=== PATIENT | female | born 1940 | race Caucasian/White ===

== ENCOUNTER 2020-11-03 11:27 | Outpatient (REF) | payer MEDICARE, SELFPAY | END 2020-11-03 11:28 | disposition home or self-care (01) | LOC: HO.LAB 11:27 | PROVIDERS: Visit Provider Internal Medicine | DX: Z20.828 Contact with and (suspected) exposure to other viral communicable diseases (principal) | CPT/HCPCS: C9803; U0003 ==

== ENCOUNTER 2021-01-05 12:36 | Outpatient (REF) | payer MEDICARE, MEDICAID, SELFPAY ==
--- NOTE | ~2021-01-05 | MM_ITS ---
EXAMINATION: MM SCREENING DIGITAL BREAST TOMOSYNTHESIS, BILATERAL CLINICAL INFORMATION: Screening. Asymptomatic. The lifetime risk of breast cancer based on the Tyrer-Cuzick Model is 5%. COMPARISON: Mammography: 12/31/2019, 10/16/2018, 09/21/2017 TECHNIQUE: Digital breast tomosynthesis is performed in both the craniocaudal and mediolateral oblique views along with computer-aided detection (CAD). Synthesized 2D images are generated from the tomosynthesis. FINDINGS: There are scattered areas of fibroglandular density (ACR BI-RADS breast composition Category b). There are no significant masses, abnormal calcifications, or other abnormalities. The axilla and skin contours are unremarkable. No significant changes. MM/MM tomosynthesis screening BI IMPRESSION: No mammographic evidence of malignancy. ASSESSMENT: BI-RADS 1: Negative RECOMMENDATION: Routine annual mammography screening. This patient's information was entered into a reminder system with a target due date for their next mammogram.
== END 2021-01-05 12:37 | disposition home or self-care (01) ==
LOC: HO.MAMMO 12:36
PROVIDERS: PCP Internal Medicine Geriatric Medicine; Visit Provider Internal Medicine Geriatric Medicine
DX: Z12.31 Encounter for screening mammogram for malignant neoplasm of breast (principal)
CPT/HCPCS: 77063; 77067

== ENCOUNTER 2021-09-15 09:15 | Outpatient (REF) | payer MEDICARE, MEDICAID, SELFPAY ==
--- NOTE | ~2021-09-15 | MM_ITS ---
EXAMINATION: BONE DENSITOMETRY CLINICAL INDICATION: Other disorder of bone density and structure. COMPARISON: Previous BD dated 08/08/2012 and baseline BD dated 05/26/2007. TECHNIQUE: Using a [employer] DXA System (software version: 13.1) manufactured by [employer]), dual-energy x-ray absorptiometry was performed of the lumbar spine and left hip. The images are of good technical quality. Summary results are attached. FINDINGS: AP SPINE L1-L4: Current: BMD 1.091 g/cm2, Z-score 0.9, T-score -0.7, normal, 5.6% increase from previous, 14.5% increase from baseline (<5% change is not significant). Prior: BMD 1.033 g/cm2. Baseline: BMD 0.953 g/cm2. LEFT FEMUR, NECK: Current: BMD 0.872 g/cm2, Z-score 0.8, T-score -1.2, osteopenia. Prior: BMD 0.836 g/cm2. Baseline: BMD 0.853 g/cm2. LEFT FEMUR, TOTAL: Current: BMD 1.023 g/cm2, Z-score 1.9, T-score 0.1, normal, 1.6% decrease from previous, 3.9% decrease from baseline (<5% change is not significant). Prior: BMD 1.040 g/cm2. Baseline: BMD 1.065 g/cm2. IDENTIFIED RISK FACTORS: Early menopause, secondary osteoporosis, tobacco use (current smoker). HISTORY OF FRACTURE: None listed. MEDICATIONS: Calcium supplements or multivitamin, vitamin D. MM/XR DEXA axial skeleton IMPRESSION: 1. DIAGNOSIS: Osteopenia based on the lowest T-score value of -1.2 in the femoral neck applying World Health Organization criteria. 2. 10-YEAR FRACTURE RISK PREDICTION, FRAX: Major osteoporotic fracture (clinical spine, forearm, hip or shoulder) 7.0%. Hip fracture 2.1%. 3. Treatment Recommendations: NOF guidelines recommend consideration for treatment in postmenopausal women and men age 50 and older presenting with the following: -A hip or vertebral (clinical or morphometric) fracture. -T-score less than or equal to -2.5 at the femoral neck or spine after appropriate evaluation to exclude secondary causes. -Low bone mass at the hip or spine and a 10-year fracture probability by FRAX of greater than or equal to 3% for hip fracture or greater than or equal to 20% for major osteoporotic fracture based on the [place] adapted WHO algorithm. 4. Other Recommendations: All treatment decisions require clinical judgment and consideration of individual patient factors, including patient preferences, comorbidities, previous drug use, risk factors not captured in the FRAX model (e.g. frailty, falls, vitamin D deficiency, increased bone turnover, interval significant decline in bone density) and possible under or overestimation of fracture risk by FRAX. Additional medical evaluation for secondary cause of low bone mineral density may be appropriate. FUTURE SCAN RECOMMENDATION: People with diagnosed cases of osteoporosis or at high risk for fracture should have regular bone mineral density tests. For patients eligible for Medicare, routine testing is allowed once every 2 years. The testing frequency can be increased to one year for patients who have rapidly progressing disease, those who are receiving or discontinuing medical therapy to restore bone mass, or have additional risk factors.
== END 2021-09-15 09:16 | disposition home or self-care (01) ==
LOC: HO.MAMMO 09:15
PROVIDERS: PCP Internal Medicine Geriatric Medicine; Visit Provider Internal Medicine Geriatric Medicine
DX: Z13.820 Encounter for screening for osteoporosis (principal); Z78.0 Asymptomatic menopausal state; M85.80 Other specified disorders of bone density and structure, unspecified site
CPT/HCPCS: 77080

== ENCOUNTER 2022-01-18 15:08 | Outpatient (REF) | payer MEDICARE, MEDICAID, SELFPAY ==
--- NOTE | ~2022-01-18 | MM_ITS ---
EXAMINATION: MM SCREENING DIGITAL BREAST TOMOSYNTHESIS, BILATERAL CLINICAL INFORMATION: Screening. Asymptomatic. The lifetime risk of breast cancer based on the Tyrer-Cuzick Model is 3%. COMPARISON: Mammography: 01/05/2021, 12/31/2019, 10/16/2018 TECHNIQUE: Digital breast tomosynthesis is performed in both the craniocaudal and mediolateral oblique views along with computer-aided detection (CAD). Synthesized 2D images are generated from the tomosynthesis. FINDINGS: There are scattered areas of fibroglandular density (ACR BI-RADS breast composition Category b). There are no significant masses, abnormal calcifications, or other abnormalities. Parenchymal pattern is similar to prior studies. There are no significant changes. MM/MM tomosynthesis screening BI IMPRESSION: No mammographic evidence of malignancy. ASSESSMENT: BI-RADS 1: Negative RECOMMENDATION: Routine annual mammography screening. This patient's information was entered into a reminder system with a target due date for their next mammogram.
== END 2022-01-18 15:09 | disposition home or self-care (01) ==
LOC: HO.MAMMO 15:08
PROVIDERS: PCP Internal Medicine Geriatric Medicine; Visit Provider Internal Medicine Geriatric Medicine
DX: Z12.31 Encounter for screening mammogram for malignant neoplasm of breast (principal)
CPT/HCPCS: 77063; 77067

== ENCOUNTER 2023-01-24 09:44 | Outpatient (REF) | payer MEDICARE, MEDICAID, SELFPAY ==
--- NOTE | ~2023-01-24 | MM_ITS ---
EXAMINATION: MM SCREENING DIGITAL BREAST TOMOSYNTHESIS, BILATERAL CLINICAL INFORMATION: Screening. Asymptomatic. Family history breast cancer, mother. The lifetime risk of breast cancer based on the Tyrer-Cuzick Model is 3%. COMPARISON: Mammography: 01/18/2022, 01/05/2021, 12/31/2019 TECHNIQUE: Digital breast tomosynthesis is performed in both the craniocaudal and mediolateral oblique views along with computer-aided detection (CAD). Synthesized 2D images are generated from the tomosynthesis. FINDINGS: There are scattered areas of fibroglandular density (ACR BI-RADS breast composition Category b). There are no significant masses, abnormal calcifications, or other abnormalities. Parenchymal pattern is similar to prior studies. There is no developing density or architectural abnormality. Mild bilateral nipple retraction similar to prior exams. The axilla are unremarkable. No significant changes. MM/MM tomosynthesis screening BI IMPRESSION: No mammographic evidence of malignancy. ASSESSMENT: BI-RADS 2: Benign RECOMMENDATION: Routine annual mammography screening. This patient's information was entered into a reminder system with a target due date for their next mammogram.
== END 2023-01-24 09:45 | disposition home or self-care (01) ==
LOC: HO.MAMMO 09:44
PROVIDERS: Visit Provider Internal Medicine Geriatric Medicine
DX: Z12.31 Encounter for screening mammogram for malignant neoplasm of breast (principal)
CPT/HCPCS: 77063; 77067

== ENCOUNTER 2023-09-14 08:28 | Outpatient (REF) | payer MEDICARE, MEDICAID, SELFPAY ==
[2023-09-14 11:58] LABS: Anion Gap 14 (12-20); Blood Urea Nitrogen 23 mg/dL (9-16); Calcium 10.1 mg/dL (8.4-10.2); Carbon Dioxide 24 mmol/L (22-29); Chloride 105 mmol/L (96-108); Estimated Glomerular Filt Rate 35; Glucose Random 131 mg/dL (60-115); Potassium 4.3 mmol/L (3.3-5.1); Sodium 139 mmol/L (135-145)
== END 2023-09-14 08:29 | disposition home or self-care (01) ==
LOC: HO.HHCL 08:28
PROVIDERS: Visit Provider Internal Medicine Geriatric Medicine
DX: E11.65 Type 2 diabetes mellitus with hyperglycemia (principal); E11.22 Type 2 diabetes mellitus with diabetic chronic kidney disease; N18.30 Chronic kidney disease, stage 3 unspecified
CPT/HCPCS: 36415; 80048

== ENCOUNTER 2024-01-30 10:00 | Outpatient (REF) | payer MEDICARE, SELFPAY | END 2024-01-30 10:01 | disposition home or self-care (01) | LOC: HO.MAMMO 10:00 | PROVIDERS: PCP Internal Medicine Geriatric Medicine; Visit Provider Internal Medicine Geriatric Medicine | DX: Z12.31 Encounter for screening mammogram for malignant neoplasm of breast (principal) | CPT/HCPCS: 77063; 77067 ==

== ENCOUNTER → 2024-01-30 10:30 | Outpatient (BNV) | payer MEDICARE, SELFPAY | PROVIDERS: PCP Internal Medicine Geriatric Medicine; Visit Provider Radiology Diagnostic Radiology | DX: Z12.31 Encounter for screening mammogram for malignant neoplasm of breast (principal) | CPT/HCPCS: 77063; 77067 ==

== ENCOUNTER 2024-04-25 08:07 | Outpatient (REF) | payer MEDICARE, SELFPAY ==
[2024-04-25 11:19] LABS: MANUAL DIFF FLAG NO
[2024-04-25 11:42] LABS: Basophils Absolute Auto 0.1 X10*3/uL (0.0-0.2); Basophils Percent Auto 0.5 % (0-2); Eosinophils Absolute Auto 0.2 X10*3/uL (0.0-0.4); Eosinophils Percent Auto 1.7 % (0-4); Hematocrit 38.7 % (37.0-47.0); Hemoglobin 12.7 g/dl (12.0-16.0); Imm Gran Abs Auto 0.07 X10*3/uL (0.00-0.03); Imm Gran Pct Auto 0.7 % (0.0-0.4); Lymphocytes Percent Auto 19.3 % (20-40); Mean Corpuscular HGB Conc 32.8 g/dl (31.0-35.0); Mean Corpuscular Volume 94.4 fL (80.0-98.0); Mean Platelet Volume 10.1 fL (9.4-12.3); Monocytes Percent Auto 9.9 % (2-11); Neutrophils Absolute Auto 6.9 x10*3/uL (2.0-8.3); Neutrophils Percent Auto 67.9 % (45-73); Platelet Count 294 X10*3/uL (160-400); Red Cell Distribution Width 13.5 % (11.0-16.0); White Blood Count 10.2 X10*3/uL (4.8-10.8)
[2024-04-25 12:08] LABS: Alanine Aminotransferase 18 U/L (0-31); Albumin Level 4.2 g/dL (3.5-5.0); Alkaline Phosphatase 71 U/L (39-117); Anion Gap 12 (12-20); Aspartate Amino Transferase 17 U/L (5-31); Bilirubin Total 0.5 mg/dL (0.0-1.0); Blood Urea Nitrogen 20 mg/dL (9-16); Calcium 9.9 mg/dL (8.4-10.2); Carbon Dioxide 27 mmol/L (22-29); Chloride 106 mmol/L (96-108); Cholesterol 95 mg/dL (<200); Estimated Glomerular Filt Rate 39; Glucose Random 110 mg/dL (60-115); HDL Cholesterol 40 mg/dL (>40); LDL Cholesterol Calculated 39 mg/dL (<100); Potassium 4.5 mmol/L (3.3-5.1); Sodium 140 mmol/L (135-145); Total Protein 8.1 g/dL (6.5-8.0); Triglycerides 82 mg/dL (<150)
[2024-04-25 12:22] LABS: Creatinine Urine 223.49 mg/dL
== END 2024-04-25 08:08 | disposition home or self-care (01) ==
LOC: HO.HHCL 08:07
PROVIDERS: Visit Provider Internal Medicine Geriatric Medicine
DX: E11.69 Type 2 diabetes mellitus with other specified complication (principal); I10 Essential (primary) hypertension; N18.30 Chronic kidney disease, stage 3 unspecified; E78.5 Hyperlipidemia, unspecified; Z72.0 Tobacco use
CPT/HCPCS: 36415; 80053; 80061; 82043; 82570; 85025

== ENCOUNTER 2024-12-28 12:12 | Outpatient (REF) | payer MEDICARE, SELFPAY ==
--- NOTE | ~2024-12-28 | XR_ITS ---
EXAMINATION: XR SHOULDER 2 OR MORE VIEWS LEFT HISTORY: left shoulder pain, no trauma, one month, limited rom, ac joint tender COMPARISON: There are no prior studies available for comparison. FINDINGS: Six views of the left shoulder are submitted. Osseous mineralization is normal. There is no fracture or dislocation. The glenohumeral joint is maintained. There is moderate osteoarthritis of the AC joint. The soft tissues are unremarkable. XR/XR shoulder LT min 2V IMPRESSION: Moderate osteoarthritis of the AC joint. Electronically signed by: Chavo Lopez MD 12/28/2024 12:52 PM [facility]
--- OUTSIDE RECORDS SUMMARY | 2024-12-28 12:42 | XMS_ITS | Encounter Summary ---
Author Organization [employer] Address [address] [facility] 7t [place] [address] Care Team Providers Care Commercial Subcontractor Name Role Phone Name, Sriram JOSHI Primary Care Provider [phone] Reason for Visit * Reason Onset Date Comments Chart Prep 12/27/2024 Encounter Details Date Type Department Care Team ([facility] st Contact Info) Description 12/27/2024 Telephone [facility] [address] [place] [address] Nimisha Stearns MA Chart Prep Social History Tobacco Use Types Packs/Day Years Used Date Smoking Tobacco: Every Day Cigarettes Smokeless Tobacco: Never Alcohol Use Standard Drinks/Week Comments Never 0 (1 standard drink = 0.6 oz pur e alcohol) Depression Answer Date Recorded Patient Health Questionnaire-9 Score 0 01/18/2024 Patient Health Questionnaire-9 Score 0 01/18/2024 Last PHQ-9: Questionnaire Data Not on file 0 01/18/2024 Housing Stability Answer Date Recorded What is your housing situation today? I have dorothy mcginnis 01/18/[address] you li ve. Do you have problems with any of the following? None of the above 01/18/2024 Food Insecurity Answer Date Recorded Within the past 12 months, y ou worried that your food would run out before you got money to buy more: Never True 01/18/2024 Within the past 12 months,th e food you bought just didn't last and you didn't have enough money to get more: Never True 04/2024 Transportation Answer Date Recorded In the past 12 months, has l ack of transportation kept you from medical appts, meetings, work or from getting things needed for daily living? No 01/18/2024 Utilities Answer Date Recorded In the past 12 months, has t he electric, gas, oil or water company threatened to shut off services in your home? No 01/18/2024 Depression Answer Date Recorded Patient Health Questionnaire-2 Score 0 01/18/2024 Comments Unknown Sex and Gender Information Value Date Recorded Sex Assigned at Female 09/13/2022 10:16 AM EDT Legal Sex Female 10:16 AM EDT Gender Identity Female 09/13/2022 10:16 AM EDT Sexual Orientation Choose not to disclose 2021 10:16 AM EDT documented as of this encounter Miscellaneous Notes * Telephone Encounter - Nimisha Stearns MA - 12/27/2024 10:38 AM EST Chart Prep Labs: done Images: done Vaccines due: Tdap, RSV, Shingles Referrals: none Screenings: eye exam , Foot Exam Overdue care gaps: A1C, Glucose, SDOH, PHQ-9 documented in this encounter Plan of Treatment Upcoming Encounters Date Type Department Care Team (Late st Contact Info) Description 03/18/2025 10:15 AM EDT Office Visit [facility] [address] [place] [address] Name, MD Sriram [address] [place] [address] documented as of this encounter Visit Diagnoses Not on filedocumented in this encounter Additional Health Concerns Assessment Noted Time PHQ-9 Depression Total Score: 0 01/18/20 24 11:18 AM EST documented as of this encounter Care Teams Commercial Subcontractor Relationship Specialty Start Date End Date Name, MD Sriram [address] [place] [address] PCP - General Family Medicine 06/24/17 documented as of this encounter
--- OUTSIDE RECORDS SUMMARY | 2024-12-28 12:42 | XMS_ITS | Encounter Summary ---
Author Organization [employer] Address [address] [facility] 7t [place] [address] Care Team Providers Care Drop Wire Hanger Name Role Phone Name, Sriram JOSHI Primary Care Provider [phone] Reason for Visit * Reason Comments Med Refill Encounter Details Date Type Department Care Team ([facility] st Contact Info) Description 12/20/2024 Refill [facility] MEDICINE [address] [place], [place] [phone] Name, MD Sriram [address] [place], [place] [phone] Essential hypertension Social History Tobacco Use Types Packs/Day Years [...] AM EDT documented as of this encounter Plan of Treatment Upcoming Encounters Date Type Department Care Team (Late st Contact Info) Description 03/18/2025 10:15 AM EDT Office Visit [facility] MED[facility]INE [address] [place] [phone] NameSriram MD [address] [place] [address] documented as of this encounter Visit Diagnoses Diagnosis Essential hypertension Unspecified essential hypertension documented in this encounter Additional Health Concerns Assessment Noted Time PHQ-9 Depression Total Score: 0 01/18/20 24 11:18 AM EST documented as of this encounter Care Teams Drop Wire Hanger Relationship Specialty Start Date End Date Name, MD Sriram [address] [place] [address] PCP - General Family Medicine 06/24/17 documented as of this encounter
--- OUTSIDE RECORDS SUMMARY | 2024-12-28 12:42 | XMS_ITS | Encounter Summary ---
Author Organization [employer] Address [address] [facility] 7t [place] [address] Care Team Providers Care Tourist Guide Name Role Phone Name, Sriram JOSHI Primary Care Provider [phone] Reason for Visit * Reason Comments Med Refill Encounter Details Date Type Department Care Team ([facility] st Contact Info) Description 07/28/2024 Refill [facility] [address] [place], [place] [phone] Name, MD Sriram [address] [place] [address] Social History Tobacco Use Types Packs/Day Years [...] Description 03/18/2025 10:15 AM EDT Office Visit [facility] [address] [place] [address] Name, MD Sriram [address] [place] [address] documented as of this encounter Visit Diagnoses Not on filedocumented in this encounter Additional Health Concerns Assessment Noted Time PHQ-9 Depression Total Score: 0 01/18/20 24 11:18 AM EST documented as of this encounter Care Teams Tourist Guide Relationship Specialty Start Date End Date Name, MD Sriram [address] [place] [address] PCP - General Family Medicine 06/24/17 documented as of this encounter
--- OUTSIDE RECORDS SUMMARY | 2024-12-28 12:42 | XMS_ITS | Encounter Summary ---
Author Organization [employer] Address [address] [facility] 7t [place] [address] Care Team Providers Care Theatrical Scenic Designer Name Role Phone Name, Sriram JOSHI Primary Care Provider [phone] Reason for Visit * Reason Onset Date Comments Nurse Triage 12/26/2024 Encounter Details Date Type Department Care Team ([facility] st Contact Info) Description 12/26/2024 Telephone [facility] [address] [place], [place] [phone] Name, MD Sriram [address] [place] [address] Nurse Triage Social History Tobacco Use Types Packs/Day Years [...] encounter Miscellaneous Notes * Telephone Encounter - Gifty Capone RN - 12/26/2024 11:37 AM EST Triage call with [facility] [place] [phone]. Pt reports left arm pain which is chronic and unrelieved at this time. Pt does use tylenol for pain relief but, it has not been effect as of lately. Pt denies injury, overuse, redness/swelling at joint. Pt reports shoulder pain has becomemore difficult and limits mobility. Pt is able to left arm up but, not without pain and not above shoulder level. Pt is requesting to see provider. ASK apt with MANUEL Coreas 12/28/24 @ 1115am. Pt agrees with disposition and is advised to try heat or ice to the area. Pt agrees to try this. Insurance is verified as active prior to booking. Protocol Used: Arm Pain (Adult) Protocol-Based Disposition: See in Office or Video Visit within 3 Days Video visit not offered Positive Triage Question: * Moderate pain (e.g., interferes with normal activities) and present > 3 days * All higher-acuity triage questions were negative Care Advice Discussed: * Pain Medicines * Pain Medicines - Extra Notes and Warnings * Reasons To Call Back - Moderate pain (such as interferes with normal activities) lasts more than 3 days - Mild pain lasts more than 7 days - Arm swelling occurs - Signs of infection occur (such as spreading redness, warmth, fever) - You become worse * Use a Cold Pack for Pain * Use Heat After 48 Hours for Pain * Telephone Encounter - John Portillo - 12/26/2024 10:43 AM EST Symptom: Arm Pain - Not From Injury Outcome: Schedule an urgent appointment (within 1 hour) or talk to a nurse or provider soon Reason: Severe pain now The caller accepted this outcome. Contact pt at [phone] documented in this encounter Plan of Treatment Upcoming Encounters Date Type Department Care Team (Late st Contact Info) Description 03/18/2025 10:15 AM EDT Office Visit [facility] [address] [place] [address] Name, MD Sriram [address] [place] [address] documented as of this encounter Visit Diagnoses Not on filedocumented in this encounter Additional Health Concerns Assessment Noted Time PHQ-9 Depression Total Score: 0 01/18/20 24 11:18 AM EST documented as of this encounter Care Teams Theatrical Scenic Designer Relationship Specialty Start Date End Date Name, MD Sriram [address] [place] [address] PCP - General Family Medicine 06/24/17 documented as of this encounter
--- OUTSIDE RECORDS SUMMARY | 2024-12-28 12:43 | XMS_ITS | Encounter Summary ---
Author Organization [employer] [facility] Address [address] [facility] 7t [place] [address] Care Team Providers Care Rubber Mill Tender Name Role Phone Name, Sriram JOSHI Primary Care Provider [phone] Reason for Referral * Consultation (Urgent) - Pending Review Specialty Diagnoses / Procedures Referred By Willy nava Referred To Contact Orthopaedic Surgery Diagnoses Acute pain of left shoulder Heather Coreas NP [address] [place] [address] Phone: tel: fax: Referral ID Status Reason Start Date Expiration Date Visits Requested Visits Authorized [id number] Pending Review Specialty Services Required 12/28/2024 12/28/2025 1 1 Encounter Details Date Type Department Care Team (Latest Contact Info) Description 12/28/2024 11:15 AM EST Office Visit [facility] MEDICINE [address] [place], [place] [phone] Heather Coreas NP [address] [place], [place] [phone] Type 2 diabetes mellitus with other specified complication, without long-term current use of insulin ([facility]) (Primary Dx); Acute pain of left shoulder; Primary osteoarthritis of left shoulder Social History Tobacco Use Types Packs/Day Years Used Date Smoking Tobacco: Former Cigarettes Smokeless Tobacco: Never Tobacco Cessation:Counseling Given: Not Answered Alcohol Use Standard Drinks/Week Comments Never 0 [...] AM EDT documented as of this encounter Last Filed Vital Signs Vital Sign Reading Time Taken Comments Blood Pressure 142/72 12/28/2024 11:32 AM EST Pulse 76 12/28/2024 11:23 AM EST Temperature 35.4 ??C (95.7 ??F) 12/28/2024 11:[address] Respiratory Rate 20 12/28/2024 11:23 AM EST Oxygen Saturation 100% 12/28/2024 11:23 AM EST Inhaled Oxygen Concentration - - Weight 62.7 kg (138 lb 3.2 oz) 12/28/2024 11:23 AM EST Height 165.1 cm (5' 5 ) 12/28/2024 11:23 AM EST Body Mass Index 23 12/28/2024 11:23 AM EST documented in this encounter Plan of Treatment Upcoming Encounters Date Type Department Care Team (Late st Contact Info) Description 03/18/2025 10:15 AM EDT Office Visit [facility] MEDICINE [address] [place] [address] Name, MD Sriram [address] [place] [address] Scheduled Orders Name Type Priority Associated Diagnoses Orde r Schedule XR Shoulder 2+ Views Left Imaging Routine Acute pain of left shoulder Expected: 12/28/2024, Expires: 12/28/2025 Scheduled Referrals Name Type Priority Associated Diagnoses Order Schedule Referral to Orthopaedic Surgery Outpatient Referral Urgent Acute pain of left shoulder Expected: 12/28/2024 (Approximate), Expires: 12/28/2025 documented as of this encounter Procedures Procedure Name Priority Date/Time Associated Diagnosis Comments POCT GLYCATED HEMOGLOBIN, TOTAL Routine 12/28/2024 11:36 AM EST Type 2 diabetes mellitus with other specified complication, without long-term current use of insulin ([facility]) POCT GLUCOSE Routine 12/28/2024 11:35 AM EST Type 2 diabetes mellitus with other specified complication, without long-term current use of insulin ([facility]) documented in this encounter Results * POCT HGB A1C (12/28/2024 11:36 AM EST) Hemoglobin A1C 5.9 4.0 - 6.0 % QC Media Lot # [id number] Lot# Expiration Date ,026 Blood 12/28/2024 11:3 6 AM EST Heather Coreas NP POINT OF CARE TEST ENTER/EDIT OR DERABLES Final Result * POCT Glucose (12/28/2024 11:35 AM EST) Glucose Blood, POC 100 60 - 200 mg/dL QC Media Lot # [id number] Lot# Expiration Date 82,625 Blood Capillary blood specimen / Unknown 12/28/2024 11:35 AM EST us Heather Coreas NP POINT OF CARE TEST ENTER/EDIT OR DERABLES Final Result documented in this encounter Visit Diagnoses Diagnosis Type 2 diabetes mellitus with other specified complication, without long-term current use of insulin ([facility])- Primary Acute pain of left shoulder Primary osteoarthritis of left shoulder documented in this encounter Additional Health Concerns Assessment Noted Time PHQ-9 Depression Total Score: 0 01/18/20 24 11:18 AM EST documented as of this encounter Care Teams Rubber Mill Tender Relationship Specialty Start Date End Date Name, MD Sriram [address] [place] [address] PCP - General Family Medicine 06/24/17 documented as of this encounter
--- OUTSIDE RECORDS SUMMARY | 2024-12-28 12:43 | XMS_ITS | Encounter Summary ---
Author Organization [employer] Address [address] [facility] 7t [place] [address] Care Team Providers Care Gamemaster Name Role Phone Name, Sriram JOSHI Primary Care Provider [phone] Encounter Details Date Type Department Care Team (Latest Contact Info) Description 12/28/2024 Travel Social History Tobacco Use Types Packs/Day Years Used Date Smoking Tobacco: Former Cigarettes Smokeless Tobacco: Never Alcohol Use Standard [...] Description 03/18/2025 10:15 AM EDT Office Visit [facility] MEDICINE [address] [place] [address] Name, MD Sriram [address] [place] [address] documented as of this encounter Visit Diagnoses Not on filedocumented in this encounter Additional Health Concerns Assessment Noted Time PHQ-9 Depression Total Score: 0 01/18/20 24 11:18 AM EST documented as of this encounter Care Teams Gamemaster Relationship Specialty Start Date End Date NameSriram MD [address] [place] [address] PCP - General Family Medicine 06/24/17 documented as of this encounter
--- OUTSIDE RECORDS SUMMARY | 2024-12-28 12:43 | XMS_ITS | Clinical Summary ---
Author Organization [employer] Address [address] [facility] 7[address] [place] [address] Care Team Providers Care Fire Support Man Name Role Phone Name, Sriram JOSHI Primary Care Provider [phone] Allergies Active Allergy Reactions Criticality Noted Date Comments Lisinopril Cough 09/18/2013 Oxybutynin Rash Low Tolterodine Other reaction(s): rash Medications OneTouch Ultra test strip USE TO TEST TWICE DAILY 12/07/19 23 Active OneTouch Ultra test stripIndications :Type 2 diabetes mellitus with other specified complication, unspecified whether [facility] insulin use ([facility]) USE TO TEST TWICE DAILY 100 strip 11 12/26/19 24 Active dulaglutide (Trulicity) 0.75 MG/0.5ML solution pen-injector Inject 0.75 mg under the skin 1 (one) time per week. 4 each 01/06/20 24 Active Lancets (OneTouch Delica Plus [id number]) misc USE DIRECTED TWICE A DAY 100 each 5 01/18/20 24 Active losartan (Cozaar) 25 MG tablet TAKE 1 TABLET BY MOUTH EVERY DAY IN THE MORNING 90 tablet 3 03/15/20 24 Active amLODIPine (Norvasc) 10 MG tablet TAKE 1 TABLET BY MOUTH EVERY DAY 90 tablet 3 04/10/20 24 Active omeprazole (PriLOSEC) [address] capsule TAKE 1 CAPSULE BY MOUTH EVERY DAY BEFORE A MEAL 90 capsule 04/10/20 24 Active ferrous sulfate 325 (65 Fe) MG tablet TAKE 1 TABLET BY MOUTH TWICE A DAY 180 tablet 1 04/30/20 24 Active albuterol 108 (90 Base) MCG/ACT inhaler Inhale 2 puffs every 6 (six) hours if needed for wheezing. 18 g 04/30/20 24 025 Active rosuvastatin (Crestor) 20 MG tabletIndication s:Carotid atherosclerosis, unspecified laterality TAKE 1 TABLET BY MOUTH EVERY DAY 90 tablet 1 07/05/20 24 Active hydroCHLOROthiaz naomy (HYDRODiuril) 25 MG tabletIndication s:Essential hypertension TAKE 1 TABLET BY MOUTH EVERY DAY 90 tablet 1 07/05/20 24 Active Aspirin Low Dose 81 MG EC tablet TOME SRIRAM TABLETA TODOS [place] ALF[place] 90 tablet 3 08/10/20 24 Active carvedilol (Coreg) 3.125 MG tabletIndication s:Essential hypertension TAKE 1 TABLET BY MOUTH TWICE A DAY WITH FOOD 180 tablet 3 12/20/19 25 Active lidocaine (Lidoderm) 5 % patchIndications :Acute pain of left shoulder Apply 1 patch topically Once per day for 14 days. Remove & discard patch within 12 hours or as directed by . 14 patch 12/28/19 25 025 Active carvedilol (Coreg) 3.125 MG tabletIndication s:Essential hypertension TAKE 1 TABLET BY MOUTH TWICE A DAY WITH FOOD 180 tablet 3 12/30/19 24 025 Discontinued Active Problems Problem Noted Date Diagnosed Date Acute pain of left shoulder 12/28/2024 Primary osteoarthritis of left shoulder 12/28/19 25 Tobacco use 12/07/2022 Hyperglycemia due to type 2 diabetes mellitus Stage 3 chronic kidney disease 03/03/2018 Hyperkalemia 09/21/2017 Type 2 diabetes mellitus 08/30/2017 Essential hypertension 08/30/2017 Carotid atherosclerosis 08/30/2017 Osteopenia 09/29/2012 Low grade squamous intraepithelial lesion (LGSIL ) 12/10/2002 Hyperlipidemia 11/14/1959 Gastritis 11/14/1959 Encounters Date Type Department Care Team Description 12/28/2024 11:15 AM EST Office Visit [facility] [address] [place] [address] Heather Coreas NP Type 2 diabetes mellitus with other specified complication, without long-term current use of insulin ([facility]) (Primary Dx); Acute pain of left shoulder; Primary osteoarthritis of left shoulder 12/28/2024 Travel 12/28/2024 Refill [facility] [address] [place] [address] Name, MD Sriram Essential hypertension; Carotid atherosclerosis, unspecified laterality 12/27/2024 Telephone [facility] [address] [place] [address] Nimisha Stearns MA Chart Prep 12/26/2024 Telephone [facility] [address] [place] [address] Sriram Franz MD Nurse Triage 12/20/2024 Refill [facility] [address] [place], [place] [phone] Name, MD Sriram Essential hypertension from Last 3 Months Immunizations Name Administration Dates Next Due Influenza High-dose Quadriva lent Preservative Free 08/17/2023,08/10/2022 Influenza Quadrivalent Adjuvanted 07/24/2021 Influenza injectable quadriv alent IIV4 with preservative 08/30/2017,10/18/2016,10/31/2015 Influenza injectable quadriv alent preservative free 07/03/2020 Influenza, High Dose Seasona l, Preservative Free 09/26/2019,08/11/2018 Influenza, IIV3, injectable 08/02/2014, 8 Influenza, Split (incl. miguel a fied surface antigen) 09/03/2013,07/20/2012 Moderna Covid-19 Vaccine 12+ 10/20/2021,01/24/20 21,12/26/2020 Pneumococcal Conjugate PCV 13 08/30/2017 Pneumococcal Polysaccharide PPSV23 03/11/2008, TD (adult), 2 Lf tetanus tox oid, preservative free, adsorbed 06/17/2000 Tdap 10/26/2011 Social History Tobacco Use Types Packs/Day Years [...] your housing situation today? I have dorothy ras 01/18/[address] you li [...] not to disclose 2021 10:16 AM EDT Last Filed Vital Signs Vital Sign Reading [...] Mass Index 23 12/28/2024 11:23 AM EST Plan of Treatment Upcoming Encounters Date Type Department Care Team (Late st Contact Info) Description 03/18/2025 10:15 AM EDT Office Visit [facility] [address] [place] [address] Name, MD Sriram [address] [place] [address] Health Maintenance Due Date Last Done Comments Eye Exam 1950 Zoster Vaccines (1 of 2) 1992 RSV Patients and Patients Aged 60 years or older (1 - 1-dose 75+ series) 2017 DTaP/Tdap/Td Vaccines (2 - Td or Tdap) 10/26/2021 10/26/2011, 06/17/2000 Diabetes: Foot Exam 10/19/2024 10/19/2023, 10/19/2023, 10/19/2023, Additional history exists Depression Screening 01/17/2025 01/18/2024, 01/18/20 SDOH Screening 01/17/2025 01/18/2024 Diabetes: Urine Protein Screening 04/25/2025 04/25/2024, 02/11/2023, 07/17/2021, Additional history exists Lipid Panel 04/25/2025 04/25/2024, 01/14, 07/17/2021, Additional history exists Alcohol/Substance Use Screening 04/30/2025 04/30/2024 Diabetes: Hemoglobin A1C 06/27/2025 025, 01/18/2024, 07/06/2023, Additional history exists Tobacco Screening 12/28/2025 12/28/2024 Pneumococcal Vaccine: 50+ Years Completed 08/30/2017, 03/11/2008, 06/17/2000 COVID-19 Vaccine Completed 08/07/2024, 05/2021, 01/23/2021, Additional history exists Influenza Vaccine Completed 08/07/2024, , 08/10/2022, Additional history exists HIB Vaccines Aged Out No longer eligi ble based on patient's age to complete this topic HPV Vaccines Aged Out No longer eligi ble based on patient's age to complete this topic Hepatitis A Vaccines Aged Out No long er eligible based on patient's age to complete this topic Hepatitis B Vaccines Aged Out No long er eligible based on patient's age to complete this topic IPV Vaccines Aged Out No longer eligi ble based on patient's age to complete this topic Meningococcal Vaccine Aged Out No marvin daniel eligible based on patient's age to complete this topic RSV under 20 months Aged Out No longe r eligible based on patient's age to complete this topic Rotavirus Vaccines Aged Out No longer eligible based on patient's age to complete this topic Procedures Procedure Name Priority Date/Time Associated Diagnosis Comments POCT GLYCATED HEMOGLOBIN, TOTAL Routine 12/28/2024 11:36 AM EST Type 2 diabetes mellitus with other specified complication, without long-term current use of insulin ([facility]) POCT GLUCOSE Routine 12/28/2024 11:35 AM EST Type 2 diabetes mellitus with other specified complication, without long-term current use of insulin ([facility]) ALBUMIN, RANDOM URINE W/CREATININE Routine 04/25/2024 8:09 AM EDT Type 2 diabetes mellitus with other specified complication, without long-term current use of insulin ([facility]) Essential hypertension Stage 3 chronic kidney disease, unspecified whether stage 3a or 3b CKD ([facility]) Hyperlipidemia, unspecified hyperlipidemia type LIPID PANEL, STANDARD Routine 04/25/2024 8:09 AM EDT Type 2 diabetes mellitus with other specified complication, without long-term current use of insulin ([facility]) Essential hypertension Stage 3 chronic kidney disease, unspecified whether stage 3a or 3b CKD ([facility]) Hyperlipidemia, unspecified hyperlipidemia type from Last 3 Months or Most Recently Relevant to Health Maintenance Results * POCT HGB A1C (12/28/2024 11:36 AM EST) Hemoglobin A1C 5.9 4.0 - 6.0 % QC Media Lot # [id number] Lot# Expiration Date Blood 12/28/2024 11:3 6 AM EST us Heather Coreas NP POINT OF CARE TEST ENTER/EDIT OR DERABLES Final Result * POCT Glucose (12/28/2024 11:35 AM EST) Glucose Blood, POC 100 60 - 200 mg/dL QC Media Lot # [id number] Lot# Expiration Date 82,625 Blood Capillary blood specimen / Unknown 12/28/2024 11:35 AM EST us Heather Coreas NP POINT OF CARE TEST ENTER/EDIT OR DERABLES Final Result * (ABNORMAL) Albumin, Random Urine W/Creatinine (04/25/2024 8:09 AM EDT) Creatinine, Urine 223.49 mg/dL [facility] Microalbumin Urine 85.0 mg/L H [facility] Microalbum Creatinine Ratio Ur 38.0(H) <30 ug/mg cr [facility] Comment:Albumin/Creatinine R atio Reference Ranges: Normal: < 30 ug/mg creatinine Microalbuminuria: 30 - 300 ug/mg creatinineClinical Albuminuria: > 300 ug/mg creatinine Urine (Urine, Random) 04/25/2024 8:09 AM EDT 04/25/2024 11:18 AM EDT us Sriram Franz MD LAB URINE ORDERABLES Final Resul t [facility] [address] [place] [phone] * (ABNORMAL) Lipid Panel, Standard (04/25/2024 8:09 AM EDT) Triglycerides 82 <150 mg/dL [facility] Comment:Desirable Triglyceri de: less than 150 mg/dLBorderline High Triglyceride 150-199 mg/dLHigh Triglyceride: 200-499 mg/dLVery High Triglyceride: greater than or equal to 5OO mg/dL Cholesterol 95 <200 mg/dL [facility] Comment:Desirable Cholestero l: less than 200 mg/dLBorderline High Cholesterol: 200-239 mg/dLHigh Cholesterol: greater than 239 mg/dL LDL Cholesterol Calculated 39 <100 mg/dL [facility] Comment:Desirable LDL: less than 100 mg/dLNear Optimal/Above Optimal LDL: 110- 129 mg/dLBorderline High LDL: 130-159 mg/dLHigh LDL: 160-189 mg/dLVery High LDL: greater than or equal to 190 mg/dL HDL Cholesterol 40(L) >40 mg/dL [facility] Comment:Desirable HDL: great er than 40 mg/dL Note: This HDL assay may give artificially low results in patients with liver disease. Blood Venous blood specimen / Unknown 04/25/2024 8:09 AM EDT 04/25/2024 11:15 AM EDT us Sriram Franz MD LAB BLOOD ORDERABLES Final Resul t [facility] [address] [place] [phone] from Last 3 Months or Most Recently Relevant to Health Maintenance Insurance Care Teams Fire Support Man Relationship Specialty Start Date End Date Name, MD Sriram [address] [place] [phone] PCP - General Family Medicine 06/24/17
--- OUTSIDE RECORDS SUMMARY | 2024-12-28 12:43 | XMS_ITS | Encounter Summary ---
Author Organization [employer] Address [address] [facility] [address] [place] [address] Care Team Providers Care Bilingual Operator Name Role Phone Name, Sriram JOSHI Primary Care Provider [phone] Reason for Visit * Reason Comments Med Refill Encounter Details Date Type Department Care Team ([facility] st Contact Info) Description 12/28/2024 Refill [facility] [address] [place], [place] [phone] Name, MD Sriram [address] [place], [place] [phone] Essential hypertension; Carotid atherosclerosis, unspecified laterality Social History Tobacco Use Types Packs/Day Years [...] 10:15 AM EDT Office Visit [facility] [address] [place] [phone] NameSriram MD [address] [place] [phone] documented as of this encounter Visit Diagnoses Diagnosis Essential hypertension Unspecified essential hypertension Carotid atherosclerosis, unspecified laterality documented in this encounter Additional Health Concerns Assessment Noted Time PHQ-9 Depression Total Score: 0 01/18/20 24 11:18 AM EST documented as of this encounter Care Teams Bilingual Operator Relationship Specialty Start Date End Date NameSriram MD [address] [place] [phone] PCP - General Family Medicine 06/24/17 documented as of this encounter
--- OUTSIDE RECORDS SUMMARY | 2024-12-28 12:43 | XMS_ITS | Encounter Summary ---
Author Organization [employer] Address [address] [place] [address] [address]t [place] [address] Care Team Providers Care Landcare Officer Name Role Phone Name, Sriram JOSHI Primary Care Provider [phone] Encounter Details Date Type Department Care Team (Late st Contact Info) Description 02/24/2023 Orders Only [facility] [address] [place] [address] Shaniqua Huff LPN Social History Tobacco Use Types Packs/Day Years Used Date Smoking Tobacco: Every Day Cigarettes Smokeless Tobacco: Never Depression Answer Date Recorded Patient Health Questionnaire-2 Score 0 12/07/2022 Comments Unknown Sex and Gender Information Value [...] Description 03/18/2025 10:15 AM EDT Office Visit [facility] [address] [place] [address] Sriram Franz MD [address] [place] [address] documented as of this encounter Visit Diagnoses Not on filedocumented in this encounter Care Teams Landcare Officer Relationship Specialty Start Date End Date Sriram Franz MD [address] [place] [address] PCP - General Family Medicine 06/24/17 documented as of this encounter
--- OUTSIDE RECORDS SUMMARY | 2024-12-28 12:43 | XMS_ITS | Encounter Summary ---
Author Organization [employer] Address [address] [facility] [address]t [place] [address] Care Team Providers Care Bowling Or Skating Front Desk Clerk Name Role Phone Name, Sriram JOSHI Primary Care Provider [phone] Encounter Details Date Type Department Care Team (Late st Contact Info) Description 01/24/2023 Orders Only [facility] [address] [place] [address] Shaniqua Huff LPN Social History Tobacco Use [...] Description 03/18/2025 10:15 AM EDT Office Visit [facility] [address] [place] [address] Name, MD Sriram [address] [place] [address] documented as of this encounter Procedures Procedure Name Priority Date/Time Associated Diagnosis Comments BI MAMMOGRAM SCREENING TOMOSYNTHESIS BILATERAL Routine 01/24/2023 10:00 AM EDT documented in this encounter Results * BI Mammogram Screening Tomosynthesis Bilateral (01/24/2023 10:00 AM EDT) Anatomical Region Laterality Modality Breast Bilateral Mammography 01/24/2023 10:0 0 AM EDT Narrative 01/25/2023 5:10 PM EDT ? [facility] ? [address] ?[place], [place] [address] ? Mammography Report ? Signed ? Patient: Vega,Trang ?MR#: [id number] ?? 19 ? : 1940 ?Acct:[id number] ? Age/Sex: 82 / F ?ADM Date: 01/24/23 ? Loc: HO.MAMMO ? Attending Dr: Sriram Franz MD ? Ordering Physician: Name,Sriram JOSHI ?Results: 2Benign Fi ?? ndings ? Date of Service: 01/24/23 ?Follow Up: 1 Year From Orig ?? inal Mammogram ? Procedure(s): MM tomosynthesis screening BI ?? Accession Number(s): [id number] ? cc: Name,Sriram JOSHI ? EXAMINATION: ?? MM SCREENING DIGITAL BREAST TOMOSYNTHESIS, BILATERAL ? CLINICAL INFORMATION: ? Screening. Asymptomatic. Family history breast cancer, mother. ? The lifetime risk of breast cancer based on the Tyrer-Cuzick Model is ?? 3%. ? COMPARISON: ?? Mammography: 01/18/2022, 01/05/2021, 12/31/2019 ? TECHNIQUE: ?? Digital breast tomosynthesis is performed in both the craniocaudal and ?? mediolateral oblique views along with computer-aided detection (CAD). ?? Synthesized 2D images are generated from the tomosynthesis. ? FINDINGS: ?? There are scattered areas of fibroglandular density (ACR BI-RADS breast ?? composition Category b). ? There are no significant masses, abnormal calcifications, or other ?? abnormalities. ??Parenchymal pattern is similar to prior studies. There ?? is no developing density or architectural abnormality. Mild bilateral ?? nipple retraction similar to prior exams. The axilla are unremarkable. ?? No significant changes. ? MM/MM tomosynthesis screening BI ?? IMPRESSION: ?? No mammographic evidence of malignancy. ? ASSESSMENT: ? BI-RADS 2: Benign ? RECOMMENDATION: ?? Routine annual mammography screening. ? This patient's information was entered into a reminder system with a ?? target due date for their next mammogram. ? Dictated By: ?Jake Lovell MD ? Signed By: ?<Electronically signed by Jake Lovell MD in OV> ?01/25/231706 ? DD/ 1000 ? TD/TT: ? Webbing Supervisor: WILSON ? Procedure Note John, Image - 01/25/2023 [facility] [address] [place] [address] Mammography Report Signed Patient: Deepak Vega#: [id number] 19 : 3Acct:[id number] Age/Sex: 82 / FADM Date: 01/24/23 Loc: HO.MAMMO Attending Dr: Sriram Franz MD Ordering Physician: Sriram Franz MDResults: 2Benign Fi ndings Date of Service: 01/24/23Follow Up: 1 Year From Orig inal Mammogram Procedure(s): MM tomosynthesis screening BI Accession Number(s): [id number] cc: Sriram Franz MD EXAMINATION: MM SCREENING DIGITAL BREAST TOMOSYNTHESIS, BILATERAL CLINICAL INFORMATION: Screening. Asymptomatic. Family history breast cancer, mother. The lifetime risk of breast cancer based on the Tyrer-Cuzick Model is 3%. COMPARISON: Mammography: 01/18/2022, 01/05/2021, 12/31/2019 TECHNIQUE: Digital breast tomosynthesis is performed in both the craniocaudal and mediolateral oblique views along with computer-aided detection (CAD). Synthesized 2D images are generated from the tomosynthesis. FINDINGS: There are scattered areas of fibroglandular density (ACR BI-RADS breast composition Category b). There are no significant masses, abnormal calcifications, or other abnormalities. Parenchymal pattern is similar to prior studies. There is no developing density or architectural abnormality. Mild bilateral nipple retraction similar to prior exams. The axilla are unremarkable. No significant changes. MM/MM tomosynthesis screening BI IMPRESSION: No mammographic evidence of malignancy. ASSESSMENT: BI-RADS 2: Benign RECOMMENDATION: Routine annual mammography screening. This patient's information was entered into a reminder system with a target due date for their next mammogram. Dictated By: Jake Lovell MD Signed By: <Electronically signed by Jake Lovell MD in OV> 01/25/23 1707 DD/ 1000 TD/TT: Webbing Supervisor: WILSON [facility] External Provider IMG BI PROCEDURES Edited Result - Final documented in this encounter Visit Diagnoses Not on filedocumented in this encounter Care Teams Bowling Or Skating Front Desk Clerk Relationship Specialty Start Date End Date Name, MD Sriram [address] [place] [address] PCP - General Family Medicine 06/24/17 documented as of this encounter
--- OUTSIDE RECORDS SUMMARY | 2024-12-28 12:43 | XMS_ITS | Encounter Summary ---
Author Organization [employer] [facility] Address [address] [place] [address] 7t [place] [address] Care Team Providers Care Forest Ranger Technician Name Role Phone Name, Sriram JOSHI Primary Care Provider [phone] Reason for Visit * Reason Comments Med Refill Encounter Details Date Type Department Care Team (Late Contact Info) Description 02/27/2023 Refill [facility] [address] [place] [phone] NameSriram MD [address] [place] [phone] Subacute cough Social History Tobacco Use Types Packs/Day Years [...] Description 03/18/2025 10:15 AM EDT Office Visit [facility] [address] [place] [phone] NameSriram MD [address] [place] [phone] documented as of this encounter Visit Diagnoses Diagnosis Subacute cough documented in this encounter Care Teams Forest Ranger Technician Relationship Specialty Start Date End Date NameSriram MD [address] [place] [phone] PCP - General Family Medicine 06/24/17 documented as of this encounter
== END 2024-12-28 12:13 | disposition home or self-care (01) ==
LOC: HO.HHCX 12:12
PROVIDERS: Visit Provider Nurse Practitioner Family
DX: M25.512 Pain in left shoulder (principal)
CPT/HCPCS: 73030

== ENCOUNTER → 2024-12-28 12:13 | Outpatient (BNV) | payer MEDICARE, SELFPAY | PROVIDERS: Visit Provider Radiology Diagnostic Radiology | DX: M19.012 Primary osteoarthritis, left shoulder (principal) | CPT/HCPCS: 73030 ==

== ENCOUNTER 2025-01-30 10:52 | Outpatient (REF) | payer MEDICARE, SELFPAY | END 2025-01-30 10:53 | disposition home or self-care (01) | LOC: HO.MAMMO 10:52 | PROVIDERS: PCP Internal Medicine Geriatric Medicine; Visit Provider Internal Medicine Geriatric Medicine | DX: Z12.31 Encounter for screening mammogram for malignant neoplasm of breast (principal) | CPT/HCPCS: 77063; 77067 ==

== ENCOUNTER → 2025-01-30 11:30 | Outpatient (BNV) | payer MEDICARE, SELFPAY | PROVIDERS: PCP Internal Medicine Geriatric Medicine; Visit Provider Internal Medicine | DX: Z12.31 Encounter for screening mammogram for malignant neoplasm of breast (principal) | CPT/HCPCS: 77063; 77067 ==

== ENCOUNTER 2025-04-29 13:03 | Outpatient (AMB) | payer MEDICARE, SELFPAY ==
--- NOTE | 2025-04-29 13:38 | MHC.OFFVIS ---
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 Patient reports pain has been present for 4 months. She explains pain is primarily on the shoulder joint, making it difficult to bring the arm above her head or to her back. She has tried icy hot and Tylenol without relief. Denies numbness or tingling. Denies previous injuries or surgeries to the left shoulder. 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 Vega is an 84 yo right hand dominant female who presents to the office today for evaluation of atraumatic left shoulder pain. She reports the pain has been present for the past 4 months. She is unable to perform any overhead activities due to pain. She has tried icy hot and ibuprofen/Tylenol with no relief. Review of Systems Const All systems reviewed & are unremarkable except as noted in HPI and below Physical Exam Const General: cooperative, healthy appearing and no acute distress Resp Effort & Inspection: normal respiratory effort and able to speak in complete sentences Extrem Other: Left shoulder normal to inspection. No ecchymosis, erythema or joint effusion. Tenderness to palpation over the AC joint. Able to perform 80 degrees of forward flexion and abduction. Pain with cross-body reach. Negative drop arm. Negative empty can. NVI. Office Procedures AMB Joint Injection/Aspiration Joint Injection/Aspiration Primary Site: left shoulder Prep: site was prepped using aseptic technique, ethochloride spray was applied and injection warnings given Injected: 40 mg of, DepoMedrol and in the subcromial space Approach Used: posterolateral Procedure: The patient tolerated the procedure well, but had some pain with the injection and there was some relief with the local anesthesia Coding 56759 - Large joint Procedure code (CPT) selection complete Assessment & Plan Assessment & Plan (1) Arthritis of left acromioclavicular joint: Code(s): M19.012 - Primary osteoarthritis, left shoulder Category: Medical (2) Painful arc syndrome of left shoulder: Code(s): M75.102 - Unspecified rotator cuff tear or rupture of left shoulder, not specified as traumatic Category: Medical (3) Diabetes: Code(s): E11.9 - Type 2 diabetes mellitus without complications Category: Medical Plan The patient was offered a cortisone injection in the left shoulder subacromial space with 40 mg of DepoMedrol. The patient was explained the risks, benefits, and alternatives to receiving this injection. After receiving consent for the injection, the patient had the procedure done while in the office today. The patient tolerated the procedure well with no complications. Due to the patient?s history of diabetes, they were instructed to monitor their blood glucose level. The patient was informed that they could see a rise in their numbers and if the numbers became too high, they were instructed to call their PCP. The patient was also informed that they could have facial flushing as a side effect of the injection, but this will pass. Additionally, while in the office today I recommended physical therapy to work on range of motion. Patient is amenable to attend therefore in order has been placed. Should this injection combined with physical therapy not be of use to the patient the next step would be a referral to Dr. Cagle for possible AC joint injection. Follow-up will be PRN, or sooner if needed X-rays of the left shoulder which were obtained on 12/28/2024 are significant for moderate AC joint arthritis. Coding Level of Care Code New Pt Level 4 (11420) Diagnoses Arthritis of left acromioclavicular joint M19.012 Painful arc syndrome of left shoulder M75.102 Diabetes E11.9 CPT Codes Coding - 82862 Large joint: 16079 - Large joint ([id number])
[2025-04-29 13:46] VITALS: BMI 24.6
== END 2025-04-29 14:15 | disposition home or self-care (01) ==
LOC: HO.HOS 13:03
PROVIDERS: PCP Internal Medicine Geriatric Medicine; Visit Provider Physician Assistant
DX: M19.012 Primary osteoarthritis, left shoulder (principal); M75.102 Unspecified rotator cuff tear or rupture of left shoulder, not specified as traumatic; E11.9 Type 2 diabetes mellitus without complications
CPT/HCPCS: 20610; 99204

== ENCOUNTER → 2025-04-29 13:03 | Outpatient (BNVA) | payer MEDICARE, SELFPAY | PROVIDERS: PCP Internal Medicine Geriatric Medicine; Visit Provider Physician Assistant | DX: M19.012 Primary osteoarthritis, left shoulder (principal); M75.102 Unspecified rotator cuff tear or rupture of left shoulder, not specified as traumatic; E11.9 Type 2 diabetes mellitus without complications | CPT/HCPCS: 20610; 99202; J1010; J2003 ==

== ENCOUNTER 2025-05-14 08:18 | Outpatient (REF) | payer MEDICARE, SELFPAY ==
--- OUTSIDE RECORDS SUMMARY | 2025-05-14 08:23 | XMS_ITS | Patient Health Record ---
Author Organization [facility] Address [address] [place] [address] Care Team Providers Care Cashier Ticket Selling Name Role Phone Name Sriram JOSHI Primary Care Provider Jordi Lucas Jr Unavailable [phone] PANCHO SOTO Unavailable Unavailable Reason For Referral No Information Medications Medication SIG (Take, Route, Frequency, Duration) Notes Start Date End Date Status glipiZIDE 10 MG 1 tablet Orally Once a day Active Ferrous Sulfate 325 (65 Fe) MG 1 tablet Orally Once a day Active Omeprazole 20 MG 1 capsule Orally Onc e a day Active Carvedilol Active Rosuvastatin Calcium 20 MG 1 tablet Oral ly Once a day Active hydroCHLOROthiazide 25 MG 1 tablet in th e morning Orally Once a day Active Aspir-81 81 MG 1 tablet Orally Once a day Active Calcium + D3 600-200 MG-UNIT 1 tablet wi th a meal Orally Once a day Active Losartan Potassium 100 MG 1 tablet Orall y Once a day Active amLODIPine Besylate 10 MG 1 tablet Orall y Once a day Active Lantus 100 UNIT/ML as directed Subcutaneous daily Active Social History Tobacco Use: Social History Observation Description Date Details (start date - stop date) Current Smoker NA - NA Tobacco Use/Smoking Question Answer Notes Patient is a current smoker How often do you smoke cigarettes? every day How many cigarettes a day do you smoke? 6-10 How soon after you wake up do you smoke your fir st cigarette? after 60 minutes Are you interested in quitting? 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 [address] [place] [address] [id number] LEANA NICOLAS Self - patient is the insured [id number] [address] [place] [address] [id number] NICOLASLEANA OGLESBY Self - patient is the insured Medical (General) History Medical History History ICD Code colonoscopy 03-31-2007 hyperplastic polyp anxiety insomnia peptic ulcer disease arthritis diabetes type 2 squamous intraepithelial dysplasi osteopenia
--- OUTSIDE RECORDS SUMMARY | 2025-05-14 08:23 | XMS_ITS | Encounter Summary ---
Author Organization [employer] Address [address] [facility] [address] [place] [address] Care Team Providers Care Trailer Sections Assembler Name Role Phone Name, Sriram JOSHI Primary Care Provider [phone] Reason for Visit * Reason Onset Date Comments Nurse Triage 12/26/2024 Encounter Details Date Type Department Care Team ([facility] st Contact Info) Description 12/26/2024 Telephone [facility] [address] [place], [place] [phone] Name, MD Sriram [address] [place] [address] Nurse Triage Social History Tobacco Use Types [...] 12/26/2024 11:37 AM EST Triage call with [facility] [place] [address]. Pt reports left arm pain which is [...] caller accepted this outcome. Contact pt at [phone] documented in this encounter Plan of Treatment Upcoming Encounters Date Type Department Care Team (Late st Contact Info) Description 06/28/2025 9:15 AM EDT Office Visit [facility] [address] [place] [address] Name, MD Sriram [address] [place] [id number] documented as of this encounter Visit Diagnoses Not on filedocumented in this encounter Additional Health Concerns Assessment Noted Time PHQ-9 Depression Total Score: 0 01/18/20 24 11:18 AM EST documented as of this encounter Care Teams Trailer Sections Assembler Relationship Specialty Start Date End Date Name, MD Sriram [address] [place] [id number] PCP - General Family Medicine 06/24/17 documented as of this encounter
[2025-05-14 11:47] LABS: MANUAL DIFF FLAG NO
[2025-05-14 11:54] LABS: Hematocrit 38.0 % (37.0-47.0); Hemoglobin 12.5 g/dl (12.0-16.0); Imm Gran Abs Auto 0.02 X10*3/uL (0.00-0.03); Imm Gran Pct Auto 0.3 % (0.0-0.4); Lymphocytes Absolute Auto 3.0 X10*3/uL (1.2-4.9); Mean Corpuscular HGB Conc 32.9 g/dl (31.0-35.0); Mean Corpuscular Hemoglobin 30.5 pg (27.0-33.0); Mean Corpuscular Volume 92.7 fL (80.0-98.0); NRBC Abs Auto 0.000 X10*3/uL (0.0-0.012); NRBC Pct Auto 0.0 /100WBC (0.0-0.2); Platelet Count 243 X10*3/uL (160-400); Red Blood Count 4.10 X10*6/uL (4.20-5.50); White Blood Count 7.8 X10*3/uL (4.8-10.8)
[2025-05-14 12:10] LABS: Microalbum/Creatinine Ratio Ur 4.7 ug/mg cr (<30)
[2025-05-14 12:23] LABS: Alanine Aminotransferase 23 U/L (0-31); Albumin Level 4.4 g/dL (3.5-5.0); Alkaline Phosphatase 53 U/L (39-117); Anion Gap 13 (12-20); Aspartate Amino Transferase 26 U/L (5-31); Blood Urea Nitrogen 30 mg/dL (9-16); Calcium 9.6 mg/dL (8.4-10.2); Carbon Dioxide 27 mmol/L (22-29); Chloride 106 mmol/L (96-108); Cholesterol 135 mg/dL (<200); Estimated Glomerular Filt Rate 30; HDL Cholesterol 52 mg/dL (>40); Potassium 4.6 mmol/L (3.3-5.1); Sodium 141 mmol/L (135-145); Total Protein 7.2 g/dL (6.5-8.0); Triglycerides 132 mg/dL (<150)
== END 2025-05-14 08:19 | disposition home or self-care (01) ==
LOC: HO.HHCL 08:18
PROVIDERS: PCP Internal Medicine Geriatric Medicine; Visit Provider Internal Medicine Geriatric Medicine
DX: E11.69 Type 2 diabetes mellitus with other specified complication (principal); I10 Essential (primary) hypertension; I65.29 Occlusion and stenosis of unspecified carotid artery
CPT/HCPCS: 36415; 80053; 80061; 82043; 82570; 85025

== ENCOUNTER 2025-06-28 09:41 | Outpatient (REF) | payer MEDICARE, SELFPAY ==
--- OUTSIDE RECORDS SUMMARY | 2025-06-28 09:50 | XMS_ITS | Patient Health Record ---
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
--- OUTSIDE RECORDS SUMMARY | 2025-06-28 09:50 | XMS_ITS | Encounter Summary ---
Author Organization [employer] Address [address] [facility] [address] [place] [address] Care Team Providers Care Orthopedic Shoes Salesperson Name Role Phone Name, Sriram JOSHI Primary Care Provider [phone] Reason for Visit * Reason Onset Date Comments Nurse Triage 12/26/2024 Encounter Details Date Type Department Care Team ([facility] st Contact Info) Description 12/26/2024 Telephone [facility] [address] [place], [place] [phone] Name, MD Sriram [address] [place] [address] Nurse Triage Social History Tobacco Use Types [...] 12/26/2024 11:37 AM EST Triage call with [place] [address]. Pt reports left arm pain which is [...] caller accepted this outcome. Contact pt at [phone] documented in this encounter Plan of Treatment Upcoming Encounters Date Type Department Care Team (Late st Contact Info) Description 09/13/2025 9:00 AM EDT Office Visit [facility] [address] [place] [id number] Name, MD Sriram [address] [place] [address] documented as of this encounter Visit Diagnoses Not on filedocumented in this encounter Additional Health Concerns Assessment Noted Time PHQ-9 Depression Total Score: 0 01/18/20 24 11:18 AM EST documented as of this encounter Care Teams Orthopedic Shoes Salesperson Relationship Specialty Start Date End Date Name, MD Sriram [address] [place] [id number] PCP - General Family Medicine 06/24/17 documented as of this encounter
[2025-06-28 11:42] LABS: Anion Gap 12 (12-20); Blood Urea Nitrogen 26 mg/dL (9-16); Calcium 9.7 mg/dL (8.4-10.2); Carbon Dioxide 26 mmol/L (22-29); Chloride 106 mmol/L (96-108); Estimated Glomerular Filt Rate 38; Potassium 4.8 mmol/L (3.3-5.1); Sodium 139 mmol/L (135-145)
== END 2025-06-28 09:42 | disposition home or self-care (01) ==
LOC: HO.HHCL 09:41
PROVIDERS: PCP Internal Medicine Geriatric Medicine; Visit Provider Internal Medicine Geriatric Medicine
DX: E11.22 Type 2 diabetes mellitus with diabetic chronic kidney disease (principal); N18.30 Chronic kidney disease, stage 3 unspecified
CPT/HCPCS: 36415; 80048